=== PATIENT | female | born 2000 | race Caucasian/White ===

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

== ENCOUNTER 2022-08-25 18:34 | Emergency (ER) | payer BC ==
--- NOTE | 2022-08-25 18:47 | NUR ---
Patient to ER bed 5 to gown for evaluation. Side rails up. Report given to TATUM UNGER.
[2022-08-25 18:48] VITALS: BP_SYST 127
--- NOTE | 2022-08-25 19:04 | NUR ---
PT BROUGHT IN BYSELF, AND PT STATES SHE BELIEVES SHE IS HAVING AN ECTOPIC , URINE COLLECTED HCG IS POSITIVE. VSS, NAD, EVEN AND UNLABORED RESPIRATIONS.
[2022-08-25] MEDS ORDERED: ONDANSETRON HCL 4 MG/2 ML VIAL IVP ONE (19:15)
[2022-08-25] MEDS ORDERED: MORPHINE 4 MG INJ. 4 MG/ML VIAL IVP ONE (19:15)
[2022-08-25] MEDS ORDERED: NACL 0.9% 1,000 ML IV ONE ×2 (19:15)
[2022-08-25 19:33] LABS: BILIRUBIN,URINE NEGATIVE (NEGATIVE); BLOOD, URINE 2+ (NEGATIVE); CLARITY/URINE CLEAR (CLEAR); COLOR,URINE YELLOW (YELLOW); GLUCOSE,URINE NEGATIVE (NEGATIVE); KETONES,URINE 2+ (NEGATIVE); LEUKOCYTE ESTERASE ,URINE NEGATIVE (NEGATIVE); NITRITE, URINE NEGATIVE (NEGATIVE); PROTEIN URINE NEGATIVE (NEGATIVE); UROBILINOGEN,URINE 0.2 (0.2-1.0)
--- NOTE | 2022-08-25 19:34 | NUR ---
REPORT GIVEN TO MIN RN
[2022-08-25 19:49] LABS: BACTERIA,URINE FEW /HPF (None Seen); WBC,URINE 0-3 /HPF (0-3)
[2022-08-25 20:11] LABS: BASOPHILS % (AUTO) 0.3 % (0.0-2.0); HEMATOCRIT 41.3 % (36-48); HEMOGLOBIN 14.3 g/dL (12.0-16.0); LYMPHOCYTES # (AUTO) 0.4 K/uL (1.0-5.5); LYMPHOCYTES % (AUTO) 4.7 % (20.5-51.5); MEAN CORPUSCULAR HEMOGLOBIN 31 pg (27-31); MEAN CORPUSCULAR HGB CONC 35 % (32-36); MEAN CORPUSCULAR VOLUME 89 fL (79.0-98.0); MONOCYTES # (AUTO) 0.6 K/uL (0.0-1.0); NEUTROPHILS # (AUTO) 8.5 K/uL (1.8-7.7); PLATELET COUNT (AUTO) 251 K/uL (130-430); RED BLOOD CELL COUNT(AUTO) 4.65 MIL/uL (4.2-6.2); RED CELL DISTRIBUTION WIDTH 12.5 % (9.0-15.0); WHITE BLOOD COUNT (AUTO) 9.6 K/uL (4.8-10.8)
[2022-08-25 20:22] LABS: CALCIUM 8.1 mg/dL (8.4-11.0); CREATININE 0.35 mg/dL (0.55-1.30)
[2022-08-25 20:52] LABS: ALBUMIN 3.5 g/dL (3.4-4.8); TOTAL BILIRUBIN 0.5 mg/dL (0.0-1.0)
[2022-08-25] MEDS ORDERED: POTASSIUM CHLORIDE 20 MEQ TAB.PRT.SR PO ONE (21:15)
[2022-08-25] MEDS ORDERED: NITROFURANTOIN MONOHYD/M-CRYST 100 MG CAPSULE (MacroBID) PO ONE (21:30)
[2022-08-25] MEDS ORDERED: NITR-85 PO (21:40)
[2022-08-25] MEDS ORDERED: DOXY1TAB3 PO (21:40)
[2022-08-25 21:41] VITALS: BP_SYST 128
== END 2022-08-25 21:41 | disposition home or self-care (01) ==
LOC: SED 18:34
DX: O26.891 Other specified pregnancy related conditions, first trimester (principal); O23.41 Unspecified infection of urinary tract in pregnancy, first trimester; Z3A.01 Less than 8 weeks gestation of pregnancy; Z79.899 Other long term (current) drug therapy
CPT/HCPCS: 99285; 96374; 76801; 96361; 96375; 80053; 81000; 84702; 85025; 86900; 86901; 36415; 76817; 81025; J2405; J2270; J7030